=== PATIENT | male | born 1940 | race Caucasian/White ===

== ENCOUNTER 2019-07-30 12:22 | Emergency (ER) | payer OTHER, MEDICARE ==
[~2019-07-30] VITALS: Ht 185.4 cm; Wt 84.4 kg
[~2019-07-30 12:22] MED LIST: AVODART0.5 MG PO; BAYER CHEWABLE81 MG PO; BENICAR20 MG PO; BYSTOLIC2.5 MG PO; CARDURA4 MG PO; CRESTOR20 MG PO; CRESTOR40 MG PO; FISH OIL 1,2001 EAC4 PO; HYDROCODON-ACE1 EAC7 PO; KEPPRA1000 MG PO; METOPROLOL SUCC25 M1 PO; NITROSTAT0.4 MG SL; PREVALITE PACKE1 PKT PO; PROTONIX40 M2 PO; QUINU10 PD PO; TOPROL XL50 MG PO
[2019-07-30 13:00] LABS: ABSOLUTE NEUTROPHILS 5.8 thou/uL (1.4-8.2); BASOPHILS 0.6 % (0.0-2.0); EOSINOPHILS 0.8 % (0.0-3.0); HEMATOCRIT 42.1 % (42.0-52.0); HEMOGLOBIN 14.1 gm/dL (14.0-18.0); LYMPHOCYTES 10.8 % (24.0-44.0); MCH 30.8 pg (26.0-34.0); MCHC 33.5 g/dL (28.0-37.0); MONOCYTES 6.8 % (1.0-8.0); PLATELET COUNT 143 thou/uL (150-400); RBC 4.57 mil/uL (4.50-6.00); RDW 14.8 % (10.5-14.5); WBC 7.1 thou/uL (4.0-11.0)
[2019-07-30 13:11] LABS: ANION GAP 4 mmol/L (7-16); BUN 22 mg/dL (7-18); CALCIUM 9.6 mg/dL (8.5-10.1); CHLORIDE 111 mmol/L (98-107); CO2 29 mmol/L (21-32); CREATININE 1.5 mg/dL (0.7-1.3); GLUCOSE 99 mg/dL (74-106); POTASSIUM 4.6 mmol/L (3.5-5.1); SODIUM 144 mmol/L (136-145)
[2019-07-30 13:22] LABS: ALBUMIN 3.8 g/dL (3.4-5.0); LIPASE 223 U/L (73-393); MAGNESIUM 2.1 mg/dL (1.8-2.4); SGOT 26 U/L (15-37); SGPT 41 U/L (30-65); TOTAL BILIRUBIN 0.4 mg/dL (<0.1-1.0); TOTAL PROTEIN 7.3 g/dL (6.4-8.2); TROPONIN-I <0.06 ng/mL (<0.06)
[2019-07-30 13:30] LABS: URINE BILIRUBIN NEGATIVE (Negative); URINE BLOOD TRACE (Negative); URINE CLARITY CLEAR; URINE COLOR YELLOW; URINE GLUCOSE-RANDOM* NEGATIVE (Negative); URINE KETONES NEGATIVE (Negative); URINE LEUKOCYTES-REFLEX NEGATIVE (Negative); URINE NITRITE-REFLEX NEGATIVE (Negative); URINE PROTEIN (DIPSTICK) 1+ (Negative); URINE UROBILINOGEN 0.2 E.U./dl (0.2-1.0)
[2019-07-30 13:52] LABS: BACTERIA-REFLEX 1-9 Few /HPF (None Seen); CASTS None Seen /LPF (None Seen); CRYSTALS None Seen /LPF (None Seen); SQUAMOUS 0-3 Few /LPF (0-3); URINE RBC 0-2 Rare /HPF (0-2); URINE WBC-REFLEX None Seen /HPF (0-5)
[2019-07-30 15:01] VITALS: BP 154/85
--- NOTE | 2019-07-30 17:40 | EKG ---
[place] [address] [facility] [place] [address] ELECTROCARDIOGRAM REPORT Name: JOVAN CHAIDEZ Room #: DEP [facility]#: [id number] Admission: 07/30/19 Attend Phys: Discharge: 07/30/19 Date of : 42 Report #: [id number] THIS REPORT FOR: //name// [facility] ED Test Date: 2019-07-30 Test Time: 12:25:32 Pat Name: JOVAN CHAIDEZ Department: Room: Gender: M Caramel Coloring Operator: ALLEN : 1940 Requested By: Laura Bernal Order Number: [id number] MD: Fabian Pérez Measurements Intervals [place] Rate: 69 P: 13 MO: 171 QRS: -29 QRSD: 92 T: 29 QT: 388 QTc: 416 Interpretive Statements Sinus rhythm Abnormal R-wave progression, early transition Left ventricular hypertrophy Compared to ECG 09/22/2012 07:11:05 Ventricular premature complex(es) no longer present Electronically Signed On 07-30-2019 17:39:45 ELECTRIC DEICER INSPECTOR by Fabian Pérez [email or web address] <ELECTRONICALLY SIGNED> By: Fabian Pérez MD, [facility] 07/30/19 1739 1225 1225 Fabian Pérez MD, [facility] /EPI
== END 2019-07-30 15:02 | disposition home or self-care (01) ==
LOC: ER 12:22
PROVIDERS: Nurse Practitioner Family
DX: R55 Syncope and collapse (principal); N17.9 Acute kidney failure, unspecified; I25.10 Atherosclerotic heart disease of native coronary artery without angina pectoris; E78.5 Hyperlipidemia, unspecified; I10 Essential (primary) hypertension; M19.90 Unspecified osteoarthritis, unspecified site; I25.2 Old myocardial infarction; Z79.899 Other long term (current) drug therapy; Z86.73 Personal history of transient ischemic attack (TIA), and cerebral infarction without residual deficits; Z95.5 Presence of coronary angioplasty implant and graft

== ENCOUNTER → 2019-08-03 | Outpatient (CLI) | payer OTHER, MEDICARE | LOC: BC 13:24 | DX: N64.4 Mastodynia (principal) ==

== ENCOUNTER → 2020-02-24 | Outpatient (CLI) | payer OTHER, MEDICARE | LOC: SJCVC 13:13 | PROVIDERS: ATTEND Internal Medicine Cardiovascular Disease | DX: R00.1 Bradycardia, unspecified (principal); I25.10 Atherosclerotic heart disease of native coronary artery without angina pectoris; E78.00 Pure hypercholesterolemia, unspecified; I10 Essential (primary) hypertension; R55 Syncope and collapse; Z95.5 Presence of coronary angioplasty implant and graft; Z86.73 Personal history of transient ischemic attack (TIA), and cerebral infarction without residual deficits; Z79.899 Other long term (current) drug therapy; Z79.82 Long term (current) use of aspirin; Z82.49 Family history of ischemic heart disease and other diseases of the circulatory system ==

== ENCOUNTER → 2020-09-19 | Outpatient (CLI) | payer OTHER, MEDICARE | LOC: SJCVC 10:34 | PROVIDERS: ATTEND Internal Medicine Cardiovascular Disease | DX: R94.31 Abnormal electrocardiogram [ECG] [EKG] (principal); I11.0 Hypertensive heart disease with heart failure; I25.10 Atherosclerotic heart disease of native coronary artery without angina pectoris; E78.00 Pure hypercholesterolemia, unspecified; I77.9 Disorder of arteries and arterioles, unspecified; Z86.73 Personal history of transient ischemic attack (TIA), and cerebral infarction without residual deficits; Z72.89 Other problems related to lifestyle; Z79.82 Long term (current) use of aspirin; Z79.899 Other long term (current) drug therapy ==

== ENCOUNTER 2020-11-15 19:09 | Inpatient (IN) | payer OTHER, MEDICARE ==
[~2020-11-15] VITALS: Ht 185.4 cm; Wt 85.3 kg
[2020-11-15 19:12] VITALS: BP 174/86
[2020-11-15 19:51] LABS: URINE BILIRUBIN NEGATIVE (Negative); URINE BLOOD 1+ (Negative); URINE CLARITY CLEAR; URINE COLOR YELLOW; URINE GLUCOSE-RANDOM* NEGATIVE (Negative); URINE KETONES NEGATIVE (Negative); URINE NITRITE-REFLEX NEGATIVE (Negative); URINE PROTEIN (DIPSTICK) TRACE (Negative); URINE UROBILINOGEN 0.2 E.U./dl (0.2-1.0)
[2020-11-15 19:57] LABS: URINE LEUKOCYTES-REFLEX 2+ (Negative)
[2020-11-15 20:04] LABS: WBC CLUMPS Moderate (None Seen)
[2020-11-15 20:05] LABS: URINE RBC 3-10 Few /HPF (0-2); URINE WBC-REFLEX >25 Many /HPF (0-5)
[2020-11-15 20:06] LABS: SQUAMOUS 0-3 Few /LPF (0-3)
[2020-11-15 20:07] LABS: CASTS None Seen /LPF (None Seen); CRYSTALS None Seen /LPF (None Seen); MUCUS 0-3 Light strn/LPF (None Seen)
[2020-11-15 20:11] LABS: ABSOLUTE NEUTROPHILS 12.2 thou/uL (1.4-8.2); BASOPHILS 0.3 % (0.0-2.0); EOSINOPHILS 0.6 % (0.0-3.0); HEMATOCRIT 38.7 % (42.0-52.0); HEMOGLOBIN 12.7 gm/dL (14.0-18.0); LYMPHOCYTES 2.4 % (24.0-44.0); MCH 30.7 pg (26.0-34.0); MCHC 32.9 g/dL (28.0-37.0); MCV 93.5 fL (80.0-100.0); MONOCYTES 3.3 % (1.0-8.0); PLATELET COUNT 145 thou/uL (150-400); POLYS 93.4 % (36.0-66.0); RBC 4.14 mil/uL (4.50-6.00); RDW 13.4 % (10.5-14.5); WBC 13.1 thou/uL (4.0-11.0)
[2020-11-15 20:19] LABS: CALCIUM 8.8 mg/dL (8.5-10.1); CREATININE 1.4 mg/dL (0.7-1.3); POTASSIUM 4.1 mmol/L (3.5-5.1)
[2020-11-15 20:25] LABS: ALBUMIN 3.5 g/dL (3.4-5.0); TOTAL BILIRUBIN 0.4 mg/dL (0.2-1.0); TOTAL PROTEIN 7.1 g/dL (6.4-8.2)
[2020-11-15] MEDS ORDERED: CRESTOR40 MG PO (22:20)
[2020-11-15 22:56] VITALS: BP 121/54
[2020-11-15 23:28] VITALS: BP 106/51
[2020-11-15 23:44] VITALS: BP 106/57
[2020-11-15] MEDS ORDERED: ASA81BEC PO (23:44)
--- NOTE | 2020-11-16 00:28 | NUR ---
Pt transported on ER gurney to unit @ 3915 11/15/20 with oxygen and IVF infusing. Pt admission started but pt does not have reading glasses and unable to answer most questions. He states will be in the am to answer questions and sign papers. Assessment as charted. continue with plan of care
[2020-11-16 01:45] LABS: HEMATOCRIT 33.9 % (42.0-52.0); HEMOGLOBIN 11.4 gm/dL (14.0-18.0); MCH 31.4 pg (26.0-34.0); MCHC 33.8 g/dL (28.0-37.0); MCV 93.1 fL (80.0-100.0); RBC 3.64 mil/uL (4.50-6.00); RDW 13.6 % (10.5-14.5); WBC 15.2 thou/uL (4.0-11.0)
[2020-11-16 01:48] LABS: CREATININE 1.4 mg/dL (0.7-1.3); POTASSIUM 4.2 mmol/L (3.5-5.1)
[2020-11-16 05:49] VITALS: BP 141/70
--- NOTE | 2020-11-16 07:03 | EKG ---
[place] [address] [facility] [address] [place] [address] ELECTROCARDIOGRAM REPORT Name: JOVAN CHAIDEZ Room #: 462-P ADM IN M.R.#: [id number] Admission: 11/15/20 Attend Phys: Mahi Watson MD Discharge: Date of : 42 Report #: [id number] [facility] Test Date: 2020-11-15 Test Time: 21:08:51 Pat Name: JOVAN CHAIDEZ Department: Room: 462 Gender: M Audio Visual Secretary: STACI : 1940 Requested By: Catracho Philip Order Number: [id number] MD: Rene Torres Measurements Intervals [place] Rate: 99 P: 27 AL: 163 QRS: -26 QRSD: 97 T: 83 QT: 330 QTc: 424 Interpretive Statements Sinus rhythm Abnormal R-wave progression, early transition Left ventricular hypertrophy Baseline wander in lead(s) V3 Compared to ECG 07/30/2019 12:25:32 No significant changes Electronically Signed On 11-16-2020 7:03:39 CDT by Rene Torres [email or web address] <ELECTRONICALLY SIGNED> By: Rene Torres MD, [facility] 11/16/20702 07 07 Rene Torres MD, [facility] /EPI
[2020-11-16 07:29] VITALS: BP 140/71
--- NOTE | 2020-11-16 08:52 | NUR ---
PT IS ABLE TO TELL NAME AND BIRTHDAY, UNABLE TO RECALL YEAR. PT UNABLE TO STATE WHERE HE IS OR WHY HE IS HERE. PT UNABLE RECALL YEAR AND UNABLE TO RECALL WHO THE PRESIDENT IS. WHEN GIVEN YEAR AND PRESIDENT PT STATES YES THAT IS RIGHT.
--- NOTE | 2020-11-16 14:43 | NUR ---
PT ADMITTED RELATED TO UTI, SEPSIS. CM REVIEWED CHART AND SPOKE WITH CARE TEAM. CM MET WITH PT AND SPOUSE AT BEDSIDE THIS DAY. CM ROLE INTRODUCED. PT AND SPOUSE INDICATED THAT THEY RESIDE IN A HOUSE WITH 2 STEPS TO ENTER AND NONE THAT THEY USE INSIDE. THEY HAVE ALL NEEDS ON ONE LEVEL. 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 THEY INDICATED THAT PT HAD BEEN TO [facility] YEARS AGO AND HAD DONE OP THERAPY AT [facility] AFTER THAT. PT AND SPOUSE INDICATED THAT THEY ANTICPATE PT RETURNING HOME ONCE MEDICALLY STABLE. PT ON IV ROCEPHIN. CM FOLLOWING REGARDING DC PLANNING.
[2020-11-16 17:21] VITALS: BP 142/84
[2020-11-16 19:59] VITALS: BP 145/76
--- NOTE | 2020-11-16 20:31 | NUR ---
PT IS FORGETFULL AND IMPULSIVE. BED ALARM ON AND PT'S ROOM IS LOCATED CLOSE TO THE NURSE'S STATION. FALL PRECAUTIONS IN PLACE. PT FORGETS HOW TO USE CALL LIGHT. PT'S STAYED MOST OF AFTERNOON WITH PT. PT REMAINED CALM ENTIRE SHIFT.
--- NOTE | 2020-11-17 06:00 | NUR ---
Pt. rested quietly at short times during the night when checked on during frequent rounds. He is alert to self, but very confused. He can be com- pulsive at times and has sounded the bed alarm frequently. Assisted to the bathroom with standby assistance. Bed alarm is on.
[2020-11-17 06:03] LABS: HEMATOCRIT 33.7 % (42.0-52.0); HEMOGLOBIN 11.3 gm/dL (14.0-18.0); MCH 31.3 pg (26.0-34.0); MCHC 33.4 g/dL (28.0-37.0); MCV 93.7 fL (80.0-100.0); RBC 3.59 mil/uL (4.50-6.00); WBC 4.8 thou/uL (4.0-11.0)
[2020-11-17 06:10] LABS: CALCIUM 8.1 mg/dL (8.5-10.1); CREATININE 1.2 mg/dL (0.7-1.3); POTASSIUM 3.8 mmol/L (3.5-5.1)
[2020-11-17 07:46] VITALS: BP 172/92
--- NOTE | 2020-11-17 09:24 | NUR ---
ASSUMED PT CARE AT 0700. PT ASSESSMENT PERFORMED AND CHARTED. AT BEDSIDE ASSISTING PT WITH FEEDING. PT DENIES PAIN AT THIS TIME. VSS. WILL CONTINUE TO MONITOR.
--- NOTE | 2020-11-17 12:22 | HC ---
[facility] [place] [address] CONSULTATION Name: JOVAN CHAIDEZ Room #: 462-P ADM IN M.R.#: [id number] Admission: 11/15/20 Attend Phys: Mahi Watson MD Discharge: Date of : 42 Report #: [id number] THIS REPORT FOR: cc: Celso Caceres MD, Rene P. MD Barry, Joseph W. MD ~ DATE OF SERVICE: 11/16/2020 INFECTIOUS DISEASE CONSULTATION ATTENDING PHYSICIAN: Dr. Watson. REASON FOR EVALUATION: Streptococcal septicemia, likely genitourinary tract source. HISTORY OF PRESENT ILLNESS: Chart reviewed, patient examined. This is a 80-year-old gentleman with extensive medical history including vasculopathy, has had previous strokes, expressive aphasia, also coronary artery disease, who underwent procedure involving his prostate roughly 2 weeks ago. He was noted to be more encephalopathic that developed sounds like shaking chills or rigors today and as a result, he was brought to the Emergency Room. Evaluation noted chest x-ray showed some perhaps scarring. Urinalysis did show greater than 25 white cells, 10-30 bacteria. CBC was mildly elevated. Lactic acid of 2.8. Procalcitonin less than 0.05. Over a short period, blood cultures now growing gram-positive cocci, consistent with strep. He was empirically treated with ceftriaxone. Clinically, he is not overtly toxic. He is maintained on room air. Otherwise, vitals are stable. ALLERGIES: Says PROSTATE MEDICINE, spouse was uncertain of the name. CURRENT MEDICATIONS: Include atorvastatin, famotidine, levetiracetam, olmesartan, ceftriaxone, acetaminophen. PAST MEDICAL HISTORY: Has known coronary artery disease with previous stenting, NC, hyperlipidemia, TURP in the past, did have stenting of the prosthetic vessels recently, hypertension, arthritis, intracranial hemorrhage, reflux, stroke with expressive aphasia. SOCIAL HISTORY: Nonsmoker, occasional ethanol, no illicit drug use. FAMILY HISTORY: Noncontributory. REVIEW OF SYSTEMS: Not reliably obtained. Apparently, denies any significant pulmonary or gastrointestinal related complaints. [facility] [address] [place] [address] CONSULTATION Name: JOVAN CHAIDEZ Room #: 462-P [facility] IN M.R.#: [id number] Admission: 11/15/20 Attend Phys: Mahi Watson MD Discharge: Date of : 42 Report #: [id number] PHYSICAL EXAMINATION: GENERAL: He is pleasant, alert, cooperative, appears to be mildly encephalopathic. VITAL SIGNS: T-max 102.9 overnight, more recently 98.2, pulse 68, respirations 18, blood pressure 140/71. SKIN: Warm, dry, no rashes. HEENT: Normocephalic. Extraocular muscles intact. NECK: Supple. LUNGS: Diminished, otherwise clear breath sounds. HEART: Regular. I do not appreciate a murmur. ABDOMEN: Soft, nontender, nondistended. EXTREMITIES: No cyanosis. GENITOURINARY AND RECTAL: Deferred. LABORATORY DATA: Blood cultures as described above 09/27 with Gram-positive cocci consistent with strep. Lactic acid 1.7. Electrolytes: Sodium 142, potassium 4.2, chloride 107, bicarbonate 20, anion gap of 7, BUN and creatinine 20 and 1.4, glucose of 126. CBC: White count 15.2, H and H 11.4 and 33.9, platelets of 135. Procalcitonin less than 0.05. Lactic acid is 2.8. Liver function tests were otherwise unremarkable. Albumin of 3.5, total protein is 7.1. ASSESSMENT: Streptococcal septicemia, suspect genitourinary tract source. He had a recent procedure with instrumentation, would be concerned about enterococcus. We will add vancomycin given the potential there. At this point, he is not overtly toxic. We will continue to monitor expectantly. Discussed in detail with his spouse. <ELECTRONICALLY SIGNED> By: Wero Kimbrough MD 11/17/20 1222 171 51 Wero Kimbrough MD /nt
--- NOTE | 2020-11-17 14:43 | NUR ---
PTS AT BEDSIDE, PT IS CONFUSED, WALKING OUT IN HALLWAY STATING HE IS GOING HOME. AND PATIENT NEEDS REASSURANCE THAT PT IS NOT GOING HOME TODAY.
[2020-11-17 17:13] VITALS: BP 165/95
[2020-11-17 20:27] VITALS: BP 174/79
--- NOTE | 2020-11-18 04:44 | NUR ---
Pt has been impulsive all shift and sounding off his bed alarm several times. He also has been wanting to leave the unit and go into other patients rooms. Pt. is alert to self only and very confused. He was getting a little aggressive with staff and security was called. Rox LINDA called and order for haldol one time (see cpoe). Haldol given with very little results. Pt. brought out to the nurses station and sat in chair with chair alarm on. Continues to try to get up and roam. Close observation by staff.
[2020-11-18 06:16] LABS: HEMATOCRIT 36.8 % (42.0-52.0); HEMOGLOBIN 12.2 gm/dL (14.0-18.0); MCH 31.3 pg (26.0-34.0); MCHC 33.2 g/dL (28.0-37.0); MCV 94.2 fL (80.0-100.0); RBC 3.91 mil/uL (4.50-6.00); RDW 14.1 % (10.5-14.5); WBC 6.2 thou/uL (4.0-11.0)
[2020-11-18 06:37] LABS: CALCIUM 8.8 mg/dL (8.5-10.1); CREATININE 1.3 mg/dL (0.7-1.3); POTASSIUM 3.8 mmol/L (3.5-5.1)
[2020-11-18 08:41] VITALS: BP 200/93
[2020-11-18 08:52] VITALS: BP 177/93
--- NOTE | 2020-11-18 08:52 | 2DMMODE ---
[facility] [place] [address] 2 D/M-MODE ECHOCARDIOGRAM Name: JOVAN CHAIDEZ Room #: 462-P ADM IN M.R.#: [id number] Admission: 11/15/20 Attend Phys: Mahi Watson MD Discharge: Date of : 42 Report #: [id number] THIS REPORT FOR: cc: Celso Caceres MD, Rene P. MD Santiago, Patrick MD [facility] ~ APPROVED REPORT Study performed: 11/18/2020 08:06:04 EXAM: Comprehensive 2D, Doppler, and color-flow Echocardiogram Patient Location: Bedside Room #: 462 Status: routine BSA: 2.10 HR: 74 bpm BP: 174/79 mmHg Rhythm: NSR Other Information Study Quality: Adequate Indications Syncope, positive blood cultures. Hx: PA, stents, HTN, HLP. 2D Dimensions RVDd: 38.57 mm IVSd: 12.03 (7-11mm) LVOT Diam: 20.29 (18-24mm) LVDd: 44.04 mm PWd: 11.32 (7-11mm) LVDs: 33.19 (25-40mm) Left Atrium: 36.34 (27-40mm) Aortic Root: 28.70 mm Volumes Left Atrial Volume (Systole) Single Plane 4CH: 45.80 mL Single Plane 2CH: 44.11 mL LA ESV Index: 24.00 mL/m2 Aortic Valve AoV Peak Pasha.: 1.40 m/s AO Peak Gr.: 7.89 mmHg LVOT Max P.92 mmHg LVOT Max V: 0.99 m/s [facility] [email or web address] [address] 2 D/M-MODE ECHOCARDIOGRAM Name: JOVAN CHAIDEZ Room #: 462-P [facility] IN ..#: [id number] Admission: 11/15/20 Attend Phys: Mahi Watson MD Discharge: Date of : 42 Report #: [id number] Vmax: 2.28 cm2 Mitral Valve E/A Ratio: 0.8 MV Decel. Time: 180.02 ms MV E Max Pasha.: 0.83 m/s MV A Pasha.: 1.05 m/s MV PHT: 52.21 ms IVRT: 79.58 ms Pulmonary Valve PV Peak Pasha.: 1.03 m/s PV Peak Gr.: 4.27 mmHg Pulmonary Vein P Vein S: 0.65 m/s P Vein A: 0.35 m/s P Vein D: 0.45 m/s P Vein A Dur.: 131.5 msec P Vein S/D Ratio: 1.44 Tricuspid Valve RAP Estimate: 5.00 mmHg Left Ventricle The left ventricle is normal size. There is normal left ventricular wall thickness. Left ventricular systolic function is normal. LVEF is 55-60%. Mild diastolic dysfunction is present (impaired relaxation pattern). Right Ventricle The right ventricle is normal size. The right ventricular systolic function is normal. Atria The left atrium size is normal. The right atrium size is normal. Aortic Valve The aortic valve is not well visualized. No aortic regurgitation is present. There is no aortic valvular stenosis. Mitral Valve The mitral valve is normal in structure. Mild mitral regurgitation. No evidence of mitral valve stenosis. Tricuspid Valve The tricuspid valve is normal in structure. There is no tricuspid valve regurgitation noted. Unable to assess PA pressure. [facility] [email or web address] [address] 2 D/M-MODE ECHOCARDIOGRAM Name: JOVAN CHAIDEZ Room #: 462-P ADM IN M.R.#: [id number] Admission: 11/15/20 Attend Phys: Mahi Watson MD Discharge: Date of : 42 Report #: [id number] Pulmonic Valve Pulmonic valve is not well visualized. Great Vessels The aortic root is normal in size. Ascending aorta is not well visualized. IVC is normal in size and collapses >50% with inspiration. Pericardium There is no pericardial effusion. <Conclusion> Normal left ventricular size/wall thickness Ejection fraction 60% Grade 1 diastolic dysfunction Normal right ventricular size/function Abnormal atrial size Color-flow Doppler study was performed of the aortic/mitral/tricuspid/pulmonary valve Trace mitral valve insufficiency No evidence of tricuspid valve insufficiency Normal aortic root size No pericardial effusion <ELECTRONICALLY SIGNED> By: Rene Torres MD, [facility] 11/18/20850 0 0 Rene Torres MD, [facility] /INF
[2020-11-18 11:46] VITALS: BP 148/82
--- NOTE | 2020-11-18 13:49 | NUR ---
Received awake on bed. Due medications given as prescribed, able to swallow meds w/o difficulty. On room air. Vital signs stable, with BP elevation noted- patient very anxious- rechecked BP- WNL. On telemetry; no complains and signs of chest pain, crushing sensation and heaviness. On heart healthy diet- tolerating well; no nausea, no vomiting and no abdominal pain noted; assisted and encouraged in eating and drinking. Continent of bowel and bladder, able to go to the toilet with standby assist. Falls bundle in place. With Ns at 125cc/hr, infusing well at R FA- pt pulling IV multiple times due to confusion, with verbal order to discontinue IVF and saline lock from Dr Carlson. Assisted in ADLs. Walked with patient in the hallway. Still with noted confusion, re-oriented from time to time and checked frequently. Visited by today- update given. Pt seen and examined by Dr Kimbrough- to continue IV antibiotics for now. No complaints of pain made during assessment. To continue monitoring patient.
--- NOTE | 2020-11-18 14:07 | NUR ---
Patient confused, resides at home with spouse. Ambulates independently. Anticipate dc home on oral antibiotic once stable to home with .
[2020-11-18 14:40] VITALS: BP 151/72
[2020-11-18 20:15] VITALS: BP 172/85
[2020-11-19 00:01] VITALS: BP 184/70
[2020-11-19 05:00] VITALS: BP 137/75
[2020-11-19 05:20] LABS: HEMATOCRIT 36.3 % (42.0-52.0); HEMOGLOBIN 12.2 gm/dL (14.0-18.0); MCH 31.5 pg (26.0-34.0); MCHC 33.6 g/dL (28.0-37.0); MCV 93.9 fL (80.0-100.0); RBC 3.87 mil/uL (4.50-6.00); RDW 14.1 % (10.5-14.5); WBC 4.7 thou/uL (4.0-11.0)
[2020-11-19 05:26] LABS: CREATININE 1.2 mg/dL (0.7-1.3); POTASSIUM 3.4 mmol/L (3.5-5.1)
--- NOTE | 2020-11-19 05:41 | NUR ---
2330 PATIENT GETTING OUT OF BED WITHOUT CALLING. BED ALARM ON FALL PRECAUTIONS IN PLACE. FREQUENT OBSERVATION. 0030 PATIENT BECOMING MORE AGITATED AND TRYING TO GET OUT OF BED. STATES HE IS GOING HOME. SWINGING AT [facility]. TRYING TO RESTART IV. [address] AND HALDOL GIVEN. HYDRALIZINE GIVEN FOR HIGH BP. PATIENT HITTING AND GRABBING STAFF. TRYING TO GET OUT OF BED. AGITATED AND HOSTILE. SECURITY CALLED. BLEACH BOILER FILLER NOTIFIED AN GIADONE GIVEN IM. 0200 PATIENT REMAINS AGITATED AND TRYING TO GET UP. PUSHING AT STAFF. HAVE JACKSCREW MAN AT BEDSIDE FOR PATIENT SAFETY. 0500 PATIENT REMAINS AGITATED AND HITTING OUT, TRYING TO GET UP. BLEACH BOILER FILLER NOTIFIED AND XYRPEXA ORDERED AND GIVEN. ORDERED SITTER TO BEDSIDE. INDUSTRIAL GREEN SYSTEMS DESIGNER NOTIFIED. SITTING AT BEDSIDE FOR PATIENT SAFETY. 0550 PATIENT SLEEING AT PRESENT TIME.
[2020-11-19 10:25] VITALS: BP 158/88
[2020-11-19] MEDS ORDERED: AMOXICILLIN 50500 M1 PO (12:28)
[2020-11-19 12:42] VITALS: BP 158/88
--- NOTE | 2020-11-19 15:56 | NUR ---
Received asleep, drowsy but rousable- pt received multiple psych medications last night as reported by night RN; more awake before lunch time. On telemetry; no complains and signs of chest pain, crushing sensation and heaviness. Assisted in ADLs. With sitter at bedside, pt was combative and agitated last night. On room air. Vital signs stable. On heart healthy diet- refused breakfast but able to have snacks; no nausea, no vomiting and no abdominal pain noted. Continent of bowel and bladder, able to go to the toilet with standby to moderate assist; Falls bundle in place. With SL at L wrist; on IV antibiotics. visited this AM- update given. Pt seen and examined by Dr Kimbrough, antibiotics shifted to PO- Dr Carlson informed. Pt seen and examined by Dr Carlson- informd him re: incident last night- physician talked to pt's - discharge orders made. Discharge instructions, follow up schedule given and instructed by charge nurse- pt's acknowledged understanding; discharge forms signed. IV discontinued. Telemetry stopped, monitor returned. Pt brought out of the unit via wheelchair with his ; personal belongings taken with him. Patient discharged.
== END 2020-11-19 13:50 | disposition home or self-care (01) | DRG 871 ==
LOC: ER 19:09 → EROBS 21:26 → 4W 21:26
PROVIDERS: Emergency Medicine; Hospitalist; Nurse Practitioner Family; ADMIT Internal Medicine; ATTEND Internal Medicine
DX: A40.8 Other streptococcal sepsis (principal); G93.41 Metabolic encephalopathy; N39.0 Urinary tract infection, site not specified; I25.10 Atherosclerotic heart disease of native coronary artery without angina pectoris; E78.5 Hyperlipidemia, unspecified; I10 Essential (primary) hypertension; R53.81 Other malaise; N13.9 Obstructive and reflux uropathy, unspecified; M19.90 Unspecified osteoarthritis, unspecified site; N40.0 Benign prostatic hyperplasia without lower urinary tract symptoms; K21.9 Gastro-esophageal reflux disease without esophagitis; G40.909 Epilepsy, unspecified, not intractable, without status epilepticus; I69.320 Aphasia following cerebral infarction; I25.2 Old myocardial infarction; Z95.5 Presence of coronary angioplasty implant and graft; Z91.09 Other allergy status, other than to drugs and biological substances
CPT/HCPCS: 10045

== ENCOUNTER 2021-04-24 09:36 | Emergency (ER) | payer OTHER, MEDICARE ==
[~2021-04-24] VITALS: Ht 185.4 cm; Wt 87.1 kg
--- NOTE | ~2021-04-24 | EMS ---
[facility] [address] [place] [address] EMS Patient Care Report Name: JOVAN CHAIDEZ Room #: DEP Joni#: [id number] Admission: 04/24/21 Attend Phys: Discharge: 04/24/21 Date of : 42 Report #: [id number] THIS REPORT FOR: //name// Report Transmitted: 04/24/2021 22:39 EMS Care Summary [facility] MED-ACT Incident [id number] @ 04/24/2021 08:51 Incident Location [address] [place] [address] Patient JOVAN CHAIDEZ Male, 80 Years 1940 Patient Address [address] [place] [address] Patient History Seizures,Stroke/CVA,Myocardial Infarction (CA), Chief Complaint Fainted in sabianism Disposition Transported No Lights/[place] Dispatch Reason Unconscious/Fainting Transported To [facility] Narrative EMs arrives to find pt lying supine on a pew in the back of the sabianism. Bystanders state pt passed out after standing up. Pt conscious upon EMS arrival, pt denies any pain or discomfort. Pt states he remembers feeling dizzy and then waking up with people around him. Bystanders deny pt hitting his head, no seizure like activity reported. Ps states pt has a hx of seizure, stroke and an CA, pts also states pt had a UTI that caused him to go into sepsis earlier this year. Pt denies any recent sickness. Pt unable to answer all questions due to memory issues caused by his medical problems. [facility] [address] [place] [address] EMS Patient Care Report Name: KAYLYNNJOVAN Juares Room #: DEP [facility]#: [id number] Admission: 04/24/21 Attend Phys: Discharge: 04/24/21 Date of : 42 Report #: [id number] negative, 12 lead reveals no acute abnormalities, no change in orthostatic vital signs. Pt was able to stand and walk to the cot with assistance. Pt transported to [facility], no change in pt condition during transport, pt moved to ED bed via sheet drag, pt care transferred to ED nursing staff. Initial Vitals @09:06P: 84,BP: 112/72,SpO2: 95, @09:04P: 79,SpO2: 94, @09:15P: 75,BP: 148/84, @09:28P: 76,BP: 150/84,SpO2: 92, @09:12P: 76, @09:21P: 73,BP: 152/73,SpO2: 93, @PTAP: 81,R: 14,BP: 116/68,Pain: 0/10,GCS: 15,Temp: 98F,SpO2: 94,Revised Trauma: 12, Impression Syncope / Fainting Procedures @09:0412-Lead ECGResponse: UnchangedSucceeded@09:03ALS AssessmentResponse: UnchangedSucceeded@09:1212-Lead ECG Timeline SENIOR ESTIMATOR,BP: 116/68 M,PULSE: 81,RR: 14 R,SPO2: 94 Ox,ETCO2: ,BG: ,PAIN: 0,GCS: 15, 08:48,Call Received 08:48,Psap Call 08:51,Dispatched 08:52,En Route 09:00,On Scene 09:02,At Patient 09:03,ALS Assessment,Response: UnchangedSucceeded, 09:04,12-Lead ECG,Response: UnchangedSucceeded, 09:04,BP: / M,PULSE: 79,RR: R,SPO2: 94 Ox,ETCO2: ,BG: ,PAIN: ,GCS: , 09:06,BP: 112/72 M,PULSE: 84,RR: R,SPO2: 95 Ox,ETCO2: ,BG: ,PAIN: ,GCS: , 09:12,12-Lead ECG, 09:12,BP: / M,PULSE: 76,RR: R,SPO2: Ox,ETCO2: ,BG: ,PAIN: ,GCS: , 09:15,BP: 148/84 M,PULSE: 75,RR: R,SPO2: Ox,ETCO2: ,BG: ,PAIN: ,GCS: , 09:17,Depart Scene 09:21,BP: 152/73 M,PULSE: 73,RR: R,SPO2: 93 Ox,ETCO2: ,BG: ,PAIN: ,GCS: , 09:28,BP: 150/84 M,PULSE: 76,RR: R,SPO2: 92 Ox,ETCO2: ,BG: ,PAIN: ,GCS: , 09:31,At Destination 09:47,Call Closed Disclaimer [address] [address] EMS Patient Care Report Name: JOVAN CHAIDEZ Room #: DEP [facility].#: [id number] Admission: 04/24/21 Attend Phys: Discharge: 04/24/21 Date of : 42 Report #: [id number] v1.1 Copyright 2020 [employer] This EMS Care Summary contains data elements from the applicable legal record (which may be displayed differently). It is designed to provide pertinent information for the following purposes: continuity of care, clinical quality, and state data reporting. The complete legal record is available to ED staff and administrators of the receiving hospital in [facility]'s Patient Tracker. All data is provided "as is."
[~2021-04-24 09:36] MED LIST changes: +AMOXICILLIN 50500 M1 PO; +ASA81BEC PO
[2021-04-24 10:10] LABS: ABSOLUTE NEUTROPHILS 5.7 thou/uL (1.4-8.2); BASOPHILS 0.3 % (0.0-2.0); EOSINOPHILS 0.6 % (0.0-3.0); HEMATOCRIT 44.6 % (42.0-52.0); HEMOGLOBIN 14.9 gm/dL (14.0-18.0); LYMPHOCYTES 7.7 % (24.0-44.0); MCH 30.9 pg (26.0-34.0); MCHC 33.5 g/dL (28.0-37.0); MCV 92.2 fL (80.0-100.0); MONOCYTES 6.1 % (1.0-8.0); PLATELET COUNT 133 thou/uL (150-400); POLYS 85.3 % (36.0-66.0); RBC 4.84 mil/uL (4.50-6.00); RDW 14.6 % (10.5-14.5); WBC 6.7 thou/uL (4.0-11.0)
[2021-04-24 10:24] LABS: CALCIUM 9.1 mg/dL (8.5-10.1); CREATININE 1.6 mg/dL (0.7-1.3); POTASSIUM 4.2 mmol/L (3.5-5.1)
[2021-04-24 10:26] LABS: ALBUMIN 3.7 g/dL (3.4-5.0)
[2021-04-24 10:48] LABS: URINE BILIRUBIN NEGATIVE (Negative); URINE BLOOD TRACE (Negative); URINE CLARITY CLEAR; URINE COLOR YELLOW; URINE GLUCOSE-RANDOM* NEGATIVE (Negative); URINE KETONES NEGATIVE (Negative); URINE LEUKOCYTES-REFLEX NEGATIVE (Negative); URINE NITRITE-REFLEX NEGATIVE (Negative); URINE PROTEIN (DIPSTICK) TRACE (Negative); URINE SPECIFIC GRAVITY 1.015 (1.005-1.035); URINE UROBILINOGEN 0.2 E.U./dl (0.2-1.0)
[2021-04-24 10:55] LABS: TOTAL BILIRUBIN 0.6 mg/dL (0.2-1.0); TOTAL PROTEIN 7.3 g/dL (6.4-8.2)
[2021-04-24 11:53] VITALS: BP 151/84
--- NOTE | 2021-04-24 15:10 | EKG ---
[facility] [place] [address] ELECTROCARDIOGRAM REPORT Name: JOVAN CHAIDEZ [id number] Admission: 04/24/21 Attend Phys: Discharge: 04/24/21 Date of : 42 Report #: [id number] [facility] ED Test Date: 2021-04-24 Test Time: 09:37:51 Pat Name: JOVAN CHAIDEZ Department: Room: Gender: Test Facility Engineer: : 1940 Requested By: Kevon Gottlieb Order Number: [id number] MD: Rene Torres Measurements Intervals [place] Rate: 78 P: 28 SD: 164 QRS: -29 QRSD: 94 T: 48 QT: 368 QTc: 420 Interpretive Statements Sinus rhythm Abnormal R-wave progression, early transition Left ventricular hypertrophy Compared to ECG 11/15/2020 21:08:51 No significant changes Electronically Signed On 04-24-2021 15:09:57 CDT by Rene Torres [email or web address] <ELECTRONICALLY SIGNED> By: Rene Torres MD, [facility] 04/24/21 1509 0937 6 Rene Torres MD, [facility] /EPI
== END 2021-04-24 12:03 | disposition home or self-care (01) ==
LOC: ER 09:36
PROVIDERS: Emergency Medicine
DX: R55 Syncope and collapse (principal); E78.5 Hyperlipidemia, unspecified; I10 Essential (primary) hypertension; M19.90 Unspecified osteoarthritis, unspecified site; K21.9 Gastro-esophageal reflux disease without esophagitis; Z79.82 Long term (current) use of aspirin; Z79.899 Other long term (current) drug therapy; Z88.9 Allergy status to unspecified drugs, medicaments and biological substances

== ENCOUNTER → 2021-06-13 | Outpatient (CLI) | payer OTHER, MEDICARE | LOC: SJCVCIMAG 07:24 | PROVIDERS: ATTEND Internal Medicine Cardiovascular Disease | DX: I25.10 Atherosclerotic heart disease of native coronary artery without angina pectoris (principal); N40.0 Benign prostatic hyperplasia without lower urinary tract symptoms; Z72.89 Other problems related to lifestyle; E78.00 Pure hypercholesterolemia, unspecified; Z79.82 Long term (current) use of aspirin; Z79.899 Other long term (current) drug therapy ==